=== PATIENT | male | born 1965 | race Caucasian/White ===

== ENCOUNTER 2018-05-13 17:47 | Emergency (ER) | payer BC ==
[~2018-05-13] VITALS: Ht 175.3 cm; Wt 61.2 kg
--- NOTE | 2018-05-13 17:52 | ED.ADGEN ---
Adult General Chief Complaint Chief Complaint ".. I got bad dental pain..." HPI HPI Patient is a 53 year old male who presents with above hx and complaints severe dental pain in tooth 31. Pt. has multiple areas of cavities and divided. No pointing abscesses appreciated. No adenopathy. No trismus. Patient denies any history of immunosuppression. Patient is scheduling dental appointment for extraction of tooth. Review of Systems Review of Systems Constitutional: Denies fever or chills [] Eyes: Denies change in visual acuity, redness, or eye pain [] HENT: Denies nasal congestion or sore throat []complaints of dental pain Respiratory: Denies cough or shortness of breath [] Cardiovascular: No additional information not addressed in HPI [] GI: Denies abdominal pain, nausea, vomiting, bloody stools or diarrhea [] : Denies dysuria or hematuria [] Musculoskeletal: Denies back pain or joint pain [] Integument: Denies rash or skin lesions [] Neurologic: Denies headache, focal weakness or sensory changes [] Endocrine: Denies polyuria or polydipsia [] All other systems were reviewed and found to be within normal limits, except as documented in this note. Family History Family History Noncontributory Current Medications Current Medications Current Medications Medications (Trade) Dose Ordered Sig/Richie Start Time Stop Time Status Last Admin Dose Admin Clindamycin HCl (Cleocin) 300 mg 1X ONCE 05/13/18 18:30 05/13/18 18:30 DC 05/13/18 18:10 300 MG Hydrocodone Bitartrate/ Ibuprofen (Vicoprofen 7.5-200) 2 tab 1X ONCE 05/13/18 18:30 05/13/18 18:30 DC 05/13/18 18:10 2 TAB Allergies Allergies Allergies Coded Allergies Type Severity Reaction Last Updated Verified Cephalosporins Allergy Intermediate 05/13/18 Yes Penicillins Allergy Intermediate 05/13/18 Yes Physical Exam Physical Exam Constitutional: Moderately acute distress, non-toxic appearance. [] HENT: Normocephalic, atraumatic, bilateral external ears normal, oropharynx moist, no oral exudates, nose normal. Pain in tooth #31 oral exam as per history of present illness Eyes: PERRLA, EOMI, conjunctiva normal, no discharge. [] Neck: Normal range of motion, no tenderness, supple, no stridor. [] Cardiovascular:Heart rate regular rhythm, no murmur [] Lungs & Thorax: Bilateral breath sounds equal at apexes with scattered wheezes on auscultation [] Abdomen: Bowel sounds normal, soft, no tenderness, no masses, no pulsatile masses. [] Skin: Warm, dry, no erythema, no rash. [] Back: No tenderness, no CVA tenderness. [] Extremities: No tenderness, no cyanosis, no clubbing, ROM intact, no edema. [] Neurologic: Alert and oriented X 3, normal motor function, normal sensory function, no focal deficits noted. [] Psychologic: Affect normal, judgement normal, mood normal. [] Current Patient Data Vital Signs Vital Signs Date Time Temp Pulse Resp B/P (MAP) Pulse Ox O2 Delivery O2 Flow Rate FiO2 05/13/18 18:03 97.9 60 18 98 Room Air EKG EKG [] Radiology/Procedures Radiology/Procedures [] Course & Med Decision Making Course & Med Decision Making Pertinent Labs and Imaging studies reviewed. (See chart for details). Patient must follow-up with Dentist. Most likely need extraction of tooth 31. Take clindamycin 300 mg 3 times a day 10 days. Tylenol and ibuprofen for pain. Vicoprofen for severe pain. Must follow-up. [] Final Impression Final Impression 1. Dental pain[]-multiple dental caries -pain focus area 31 Dragon Disclaimer Dragon Disclaimer This electronic medical record was generated, in whole or in part, using a voice recognition dictation system. CECIL BERNARDO MD May 13, 2018 17:52
[2018-05-13 18:03] VITALS: BP 121/62
[2018-05-13] MEDS ORDERED: CLIN300C8 PO (18:05)
[2018-05-13] MEDS ORDERED: HYDR-79 PO (18:05)
[2018-05-13] MEDS ORDERED: CLINDAMYCIN HCL 150 MG CAPSULE PO ONE (18:30)
[2018-05-13] MEDS ORDERED: HYDROcodon/IBUPROFEN 7.5/200MG 1 TAB TABLET PO ONE (18:30)
== END 2018-05-13 18:14 | disposition home or self-care (01) ==
LOC: ER 17:47
DX: K02.9 Dental caries, unspecified (principal); Z88.1 Allergy status to other antibiotic agents; Z88.0 Allergy status to penicillin
CPT/HCPCS: 99283